=== PATIENT | female | born 1985 | race African-American/Black ===

== ENCOUNTER 2019-04-02 08:20 | Emergency (ER) | payer OTHER, SELFPAY ==
[~2019-04-02] VITALS: Ht 162.6 cm; Wt 88.0 kg
[2019-04-02] MEDS ORDERED: DICYCLOMINE 20 MG/2 ML AMPUL. IM ONE (08:45)
[2019-04-02] MEDS ORDERED: ONDANSETRON PF 4 MG/2 ML VIAL. IV ONE (08:45)
--- NOTE | 2019-04-02 08:49 | PHYS DOC ---
Past Medical History Past Medical History: No Pertinent History Past Surgical History: , Tubal ligation Alcohol Use: None Drug Use: None Adult General Chief Complaint Chief Complaint: BLOODY STOOL HPI HPI 43-year-old female presents to ER via POV for complaints of GI issues which started yesterday. Patient states she had nausea and intermittent vomiting episodes yesterday and loose stools. Patient states she had blood-streaked stools so she came to the ER for evaluation. She reports she is having lower abd ominal intermittent cramping. Patient denies any vaginal symptoms. LMP last month. Patient states she feels like she has urinary urgency and she feels like she needs to be constantly however is having no dysuria, hematuria, or urinary frequency. Patient denies others in family with similar GI illness. She denies any recent travel. Review of Systems Review of Systems Constitutional: Denies fever or chills [] Eyes: Denies change in visual acuity, redness, or eye pain [] HENT: Denies nasal congestion or sore throat [] Respiratory: Denies cough or shortness of breath [] Cardiovascular: No additional information not addressed in HPI [] GI: Reports lower abdominal pain, intermittent nausea, vomiting episodes yesterday, and loose blood-streaked stools. : Denies dysuria or hematuria. Denies vaginal symptoms. Reports urinary urgency without frequency Musculoskeletal: Denies back pain or joint pain [] Integument: Denies rash or skin lesions [] Neurologic: Denies headache, focal weakness or sensory changes area denies dizziness Endocrine: Denies polyuria or polydipsia [] All other systems were reviewed and found to be within normal limits, except as documented in this note. Current Medications Current Medications Current Medications Medications (Trade) Dose Ordered Sig/Lorin Start Time Stop Time Status Last Admin Dose Admin Dicyclomine HCl (Bentyl) 20 mg 1X ONCE 04/02/19 08:45 04/02/19 08:47 DC 04/02/19 08:54 20 MG Ondansetron HCl (Zofran) 4 mg 1X ONCE 04/02/19 08:45 04/02/19 08:47 DC 04/02/19 08:54 4 MG Allergies Allergies Allergies Coded Allergies Type Severity Reaction Last Updated Verified hydrocodone Allergy Intermediate VOMITING RASH 11/29/15 Yes Physical Exam Physical Exam Constitutional: Well developed, well nourished, no acute distress, non-toxic appearance. [] HENT: Normocephalic, atraumatic, oropharynx moist, nose normal. [] Eyes: Pupils equal, conjunctiva normal, no discharge. [] Neck: Normal range of motion, no tenderness, supple, no stridor. [] Cardiovascular: Heart rate regular rhythm, no murmur [] Lungs & Thorax: Bilateral breath sounds clear to auscultation- resp. equal/nonlabored Abdomen: Bowel sounds normal, soft, no tenderness- no distention/rigidity, no masses, no pulsatile masses. Rectal exam- no external hemorrhoids or blood at rectum. No erythema/lesions/rash. Pt preferred no rectal exam for fecal occult Skin: Warm, dry, no erythema, no rash. [] Back: No tenderness, no CVA tenderness. [] Extremities: No tenderness, no cyanosis, no clubbing, ROM intact, no edema. [] Neurologic: Alert and oriented X 3, normal motor function, normal sensory function, no focal deficits noted. [] Psychologic: Affect normal, judgement normal, mood normal. [] Current Patient Data Vital Signs Vital Signs Date Time Temp Pulse Resp B/P (MAP) Pulse Ox O2 Delivery O2 Flow Rate FiO2 04/02/19 09:04 98.8 83 18 134/64 (87) 98 Room Air 98.8 Lab Values Laboratory Tests Test 04/02/19 08:50 04/02/19 09:50 04/02/19 10:01 White Blood Count 9.7 x10^3/uL (4.0-11.0) Red Blood Count 5.14 x10^6/uL (3.50-5.40) Hemoglobin 13.2 g/dL (12.0-15.5) Hematocrit 40.3 % (36.0-47.0) Mean Corpuscular Volume 78 fL (79-100) L Mean Corpuscular Hemoglobin 26 pg (25-35) Mean Corpuscular Hemoglobin Concent 33 g/dL (31-37) Red Cell Distribution Width 15.4 % (11.5-14.5) H Platelet Count 245 x10^3/uL (140-400) Neutrophils (%) (Auto) 71 % (31-73) Lymphocytes (%) (Auto) 22 % (24-48) L Monocytes (%) (Auto) 6 % (0-9) Eosinophils (%) (Auto) 1 % (0-3) Basophils (%) (Auto) 1 % (0-3) Neutrophils # (Auto) 6.9 x10^3uL (1.8-7.7) Lymphocytes # (Auto) 2.2 x10^3/uL (1.0-4.8) Monocytes # (Auto) 0.5 x10^3/uL (0.0-1.1) Eosinophils # (Auto) 0.1 x10^3/uL (0.0-0.7) Basophils # (Auto) 0.1 x10^3/uL (0.0-0.2) Sodium Level 138 mmol/L (136-145) Potassium Level 4.0 mmol/L (3.5-5.1) Chloride Level 102 mmol/L (98-107) Carbon Dioxide Level 28 mmol/L (21-32) Anion Gap 8 (6-14) Blood Urea Nitrogen 12 mg/dL (7-20) Creatinine 0.8 mg/dL (0.6-1.0) Estimated GFR (Cockcroft-Gault) 98.8 BUN/Creatinine Ratio 15 (6-20) Glucose Level 100 mg/dL (70-99) H Calcium Level 9.4 mg/dL (8.5-10.1) Magnesium Level 1.9 mg/dL (1.8-2.4) Total Bilirubin 0.4 mg/dL (0.2-1.0) Aspartate Amino Transferase (AST) 22 U/L (15-37) Alanine Aminotransferase (ALT) 28 U/L (14-59) Alkaline Phosphatase 63 U/L (46-116) Total Protein 8.3 g/dL (6.4-8.2) H Albumin 4.2 g/dL (3.4-5.0) Albumin/Globulin Ratio 1.0 (1.0-1.7) Lipase 97 U/L (73-393) Urine Collection Type Unknown Urine Color Yellow Urine Clarity Clear Urine pH 6.5 Urine Specific [place] 1.015 Urine Protein Negative mg/dL (NEG-TRACE) Urine Glucose (UA) Negative mg/dL (NEG) Urine Ketones (Stick) Negative mg/dL (NEG) Urine Blood Negative (NEG) Urine Nitrite Negative (NEG) Urine Bilirubin Negative (NEG) Urine Urobilinogen Dipstick 0.2 mg/dL (0.2 mg/dL) Urine Leukocyte Esterase Negative (NEG) Urine RBC 0 /HPF (0-2) Urine WBC Occ /HPF (0-4) Urine Squamous Epithelial Cells Many /LPF Urine Bacteria 0 /HPF (0-FEW) Urine Mucus Mod /LPF POC Urine HCG, Qualitative Hcg negative (Negative) Laboratory Tests 04/02/19 08:50 Laboratory Tests 04/02/19 08:50 EKG EKG [] Radiology/Procedures Radiology/Procedures [] Course & Med Decision Making Course & Med Decision Making Pertinent Labs reviewed. (See chart for details) Pt was evaluated in the ER for GI sxs and had no active V/D episodes while in the ER. Labs were obtained. IV flds were given with Zofran and IM bentyl. Labs were unremarkable- WBCs NL at 9.7; H&H stable at 13.2/40.3; BUN NL at 12. UA neg. for infection and UCG was neg. Discussed blood streaked stools and NL H&H. No fecal occult sent as pt preferred not to have that test done.. With improved sxs pt was comfortable with home d/c. PO challenge was done and pt had no c/o nausea. Education provided on s&s to return to ER for and d/c instructions were discussed. Will provide Rx for Zofran ODT and Bentyl with d/c paperwork. Dragon Disclaimer [place] Disclaimer This electronic medical record was generated, in whole or in part, using a voice recognition dictation system. Departure Departure Impression: Primary Impression: Abdominal pain Additional Impressions: Nausea & vomiting Diarrhea Blood in stool Disposition: 01 HOME, SELF-CARE Condition: STABLE Referrals: NO PCP (PCP) Patient Instructions: Abdominal Pain, Bloody Diarrhea, Nausea and Vomiting Additional Instructions: Drink plenty of fluids and advance diet as tolerated. If symptoms persist follow-up with your primary doctor for re-evaluation and further care. Scripts Dicyclomine Hcl (DICYCLOMINE HCL) 10 Mg Capsule 1 CAP PO PRN Q6HRS PRN for PAIN, #10 CAP 0 Refills Prov: BESSIE JEANJaja Parra QUALITY CONTROL COORDINATOR 04/02/19 Ondansetron (ONDANSETRON ODT) 4 Mg Tab.rapdis 1 TAB PO PRN Q6-8HRS PRN for NAUSEA, #8 TAB 0 Refills Prov: JASPAL JAEN APRN 04/02/19 Problem Qualifiers JASPAL JEAN APRN April 02, 2019 08:49
[2019-04-02 09:04] VITALS: BP 134/64
[2019-04-02 09:13] LABS: BASO # 0.1 x10^3/uL (0.0-0.2); BASO % 1 % (0-3); EOS # 0.1 x10^3/uL (0.0-0.7); EOS % 1 % (0-3); HEMATOCRIT 40.3 % (36.0-47.0); HEMOGLOBIN 13.2 g/dL (12.0-15.5); LYMPH # 2.2 x10^3/uL (1.0-4.8); LYMPH % 22 % (24-48); MEAN CORPUSCULAR HEMOGLOBIN 26 pg (25-35); MEAN CORPUSCULAR HGB CONC 33 g/dL (31-37); MEAN CORPUSCULAR VOLUME 78 fL (79-100); MONO # 0.5 x10^3/uL (0.0-1.1); MONO % 6 % (0-9); NEUT # 6.9 x10^3uL (1.8-7.7); NEUT % 71 % (31-73); PLATELET COUNT 245 x10^3/uL (140-400); RED BLOOD COUNT 5.14 x10^6/uL (3.50-5.40); RED CELL DISTRIBUTION WIDTH 15.4 % (11.5-14.5); WHITE BLOOD COUNT 9.7 x10^3/uL (4.0-11.0)
[2019-04-02 09:25] LABS: CALCIUM 9.4 mg/dL (8.5-10.1); CREATININE 0.8 mg/dL (0.6-1.0); GFR 98.8
[2019-04-02 09:30] LABS: ALBUMIN 4.2 g/dL (3.4-5.0); MAGNESIUM 1.9 mg/dL (1.8-2.4); TOTAL BILIRUBIN 0.4 mg/dL (0.2-1.0); TOTAL PROTEIN 8.3 g/dL (6.4-8.2)
[2019-04-02 10:07] LABS: BILIRUBIN,URINE NEGATIVE (NEG); CLARITY,URINE CLEAR; COLOR,URINE YELLOW; NITRITE,URINE NEGATIVE (NEG); PH,URINE 6.5; PROTEIN,URINE NEGATIVE (NEG-TRACE); UROBILINOGEN,URINE 0.2 mg/dL (0.2 mg/dL)
[2019-04-02 10:12] LABS: BACTERIA,URINE 0 /HPF (0-FEW); RBC,URINE 0 /HPF (0-2); SQUAMOUS EPITHELIAL CELL,UR MANY /LPF; WBC,URINE OCC /HPF (0-4)
[2019-04-02] MEDS ORDERED: DICY10CA3 PO (10:23)
[2019-04-02] MEDS ORDERED: ONDA4TAB12 PO (10:23)
== END 2019-04-02 11:00 | disposition home or self-care (01) ==
LOC: ER 08:20
DX: R11.2 Nausea with vomiting, unspecified (principal); K92.1 Melena; R19.7 Diarrhea, unspecified; R10.30 Lower abdominal pain, unspecified; R39.15 Urgency of urination; R35.0 Frequency of micturition; Z88.5 Allergy status to narcotic agent; Z98.890 Other specified postprocedural states; Z98.51 Tubal ligation status
CPT/HCPCS: 36415; 80053; 81001; 81025; 83690; 83735; 85025; 96372; 96374; 99284; J0500; J2405

== ENCOUNTER 2021-05-22 10:59 | Emergency (ER) | payer SELFPAY ==
[~2021-05-22] VITALS: Ht 167.6 cm; Wt 85.0 kg
[~2021-05-22 10:59] MED LIST: DICY10CA3 PO; ONDA4TAB12 PO
[2021-05-22 11:05] VITALS: BP 132/75
[2021-05-22] MEDS ORDERED: FLUORESCEIN OPHTH TEST STRIP. OS ONE (11:45)
[2021-05-22] MEDS ORDERED: TETRACAINE 0.5% OPHTH SOLUTION 4ML BOTTLE. OS ONE (11:45)
--- NOTE | 2021-05-22 11:46 | ED.ADGEN ---
Past Medical History Past Medical History: No Pertinent History Past Surgical History: Smoking Status: Never Smoker Alcohol Use: Rarely Drug Use: None General Adult EDM: Chief Complaint: EYE PROBLEMS HPI: HPI: Patient is a 35 year old AA female who presents to the ER with complaints of pain, redness, and photosensitivity of the left eye for the last 2 days. She denies any injury to her eye. Pt reports that she does wear contacts daily. She denies any crusting of her eyelids or purulent drainage. PT reports profuse tearing from the eye. She denies decreased vision, fever, cough, sore throat, nausea, vomiting, ear pain, headache, or rash. She currently rates the pain in her left eye a 0/10 with her eye closed, the pain increases to a 10/10 when her eye is open. Review of Systems: Review of Systems: Complete ROS is negative unless otherwise noted in HPI. Current Medications: Current Medications Medications (Trade) Dose Ordered Sig/Lorin Start Time Stop Time Status Last Admin Dose Admin Fluorescein Sodium (Ful-Tena) 1 strip 1X ONCE 05/22/21 11:45 05/22/21 11:46 DC Tetracaine HCl (Tetracaine) 1 drop 1X ONCE 05/22/21 11:45 05/22/21 11:46 DC Allergies: Allergies: Allergies Coded Allergies Type Severity Reaction Last Updated Verified hydrocodone Allergy Intermediate VOMITING RASH 11/29/15 Yes Physical Exam: PE: See Above Constitutional: Well developed, well nourished, no acute distress, non-toxic appearance. [] HENT: Normocephalic, atraumatic, bilateral external ears normal, nose normal. [] Eyes: PERRLA, EOMI, R eye: conjunctiva normal, no discharge; L eye: diffuse erythema, conjunctiva injected, watery discharge, mild swelling of upper and lower eyelids Neck: Normal range of motion, no stridor. [] Cardiovascular:Heart rate regular rhythm Lungs & Thorax: Respirations even and unlabored, no retractions, no respiratory distress Skin: Warm, dry, no erythema, no rash. [] Extremities: No cyanosis, ROM intact, no edema. [] Neurologic: Alert and oriented X 3, no focal deficits noted. [] Psychologic: Affect normal, judgement normal, mood normal. [] Current Patient Data: Vital Signs: Vital Signs Date Time Temp Pulse Resp B/P (MAP) Pulse Ox O2 Delivery O2 Flow Rate FiO2 05/22/21 11:05 98.7 83 16 132/75 (94) 99 Room Air 98.7 EKG: EKG: [] Heart Score: C/O Chest Pain: No Radiology/Procedures: Radiology/Procedures: Using tetracaine and fluroscein the patient's left eye was examined under Wood's lamp and a diffuse area of uptake over the cornea was noted, no visible corneal abrasion. Patient's ocular symptoms have stabilized while they have been evaluated in the department and are appropriate for outpatient work up. No evidence of ruptured globe, retinal detachment, acute angle closure glaucoma, or deep space infection. Plan for 24 hour ophthalmologic follow up. [] Course & Med Decision Making: Course & Med Decision Making Pertinent Labs and Imaging studies reviewed. (See chart for details) [id number] spoke with Dr. Virgen the accounts payable supervisor on-call. Will prescribe the patient moxifloxacin to use every 2 hours while awake and if she awakens during the night. Will instruct patient to discard her contacts, and encouraged her to return to the ER if increasing redness, sensitivity, vision changes or pain. Will have patient follow-up with her eye doctor or Dr. Virgen's office on Monday for reevaluation, sooner if possible with her eye doctor. Patient verbalized an understanding of home care, medications, follow-up, and return to ED instructions and was in agreement with the plan of care. [] Dragon Disclaimer: Dragon Disclaimer: This electronic medical record was generated, in whole or in part, using a voice recognition dictation system. Departure Departure Impression: Primary Impression: Keratitis secondary to contact lens Additional Impressions: Acute left eye pain Photophobia, left eye Disposition: HOME / SELF CARE / HOMELESS Condition: STABLE Referrals: HEAVENLY VIRGEN MD Patient Instructions: Conjunctivitis (Viral and Bacterial) Additional Instructions: Fill the prescription and use it as directed. You may take Tylenol or ibuprofen as needed for pain. Discontinue use of your contact lenses in the affected eye for at least 2 weeks, do not resume until infection has completely cleared. You need to discard your lens case, any eyedrops, and disposable lenses. Follow-up with your eye doctor or Dr. Virgen within the next 1 to 2 days for complete evaluation. For increased redness, sensitivity, vision changes, or pain please return to the emergency department. Scripts Moxifloxacin Hcl (VIGAMOX) 3 Ml Drops 1 DROP OS Q2HR for 3 Days, #1 BOTTLE 0 Refills Administer to left eye every 2 hours while awake and if you awaken during the night Prov: ESTRELLA MATHUR APRN 05/22/21 Problem Qualifiers ESTRELLA MATHUR APRN May 22, 2021 11:46
[2021-05-22] MEDS ORDERED: MOXI3DRO22 OS (11:58)
[2021-05-22] MEDS ORDERED: MOXIFLOXACIN 0.5% OPHTH SOLUTION 3ML BOTTLE. OS ONE (12:00)
== END 2021-05-22 12:12 | disposition home or self-care (01) ==
LOC: ER 10:59
DX: H16.8 Other keratitis (principal); H53.142 Visual discomfort, left eye; H57.12 Ocular pain, left eye; Z88.5 Allergy status to narcotic agent
CPT/HCPCS: 99283